=== PATIENT | female | born 1945 | race Two or more races ===

== ENCOUNTER 2020-06-02 23:22 | Inpatient (IN) | payer MEDICARE, MEDICAID ==
[~2020-06-02] VITALS: Ht 167.6 cm; Wt 84.6 kg
[2020-06-03 01:02] LABS: Basophils # (auto) 0 10 ^3/uL (0-0.2); Eosinophils # (auto) 0.2 10 ^3/uL (0-0.8); Lymphocytes # (auto) 0.9 10 ^3/uL (0.4-5.4); Lymphocytes % (auto) 16.7 % (10.0-50.0); Mean Corpuscular Hgb Conc. 33.4 g/dL (32.0-36.0); Monocytes # (auto) 0.4 10 ^3/uL (0-1.3); Neutrophils # (auto) 3.6 10 ^3/uL (1.6-8.6); Platelet Count (auto) 49 10^3/uL (140-450)
[2020-06-03 01:03] LABS: Basophils % (auto) 0.8 % (0.0-2.0); Eosinophils % (auto) 3.3 % (0.0-7.0); Hematocrit 35.2 % (36.0-46.0); Hemoglobin 11.8 g/dL (12.2-16.2); Mean Corpuscular Hemoglobin 32.4 pg (28.0-32.0); Monocytes % (auto) 8.4 % (0.0-12.0); Neutrophils % (auto) 70.8 % (37.0-80.0); Red Blood Cells 3.63 10^6/uL (4.0-5.20); Red Cell Distribution Width 15.9 % (11.8-14.3); White Blood Cell 5.1 10^3/uL (4.4-10.8)
[2020-06-03 01:39] LABS: Albumin 2.6 g/dL (3.4-5.0); Calcium 8.2 mg/dL (8.5-10.1); Potassium 3.7 mmol/L (3.5-5.1)
[2020-06-03 01:42] LABS: BUN/Creatinine Ratio 25.8; Bilirubin, Total 0.8 mg/dL (0.2-1.0); Total Protein 6.5 g/dL (6.4-8.2)
[2020-06-03] MEDS ORDERED: TEMAZEPAM 15 MG CAP PO PRN (08:00)
[2020-06-03] MEDS ORDERED: ONDANSETRON HCL 4 MG/2 ML VIAL IV PRN (08:00)
[2020-06-03] MEDS: PANTOPRAZOLE 40 MG TAB PO SCH (09:48)
[2020-06-03 09:55] LABS: INR 1.23 (0.9-1.15); Partial Thromboplastin Time 28.5 sec (23.0-31.2)
--- NOTE | 2020-06-03 10:00 | NUR ---
Pt arrived to room. Pleasant denies discomfort at this time. Abdomen distended and tight. Coag labs resulted. Call to radiology made then aware resulted.
--- NOTE | 2020-06-03 10:06 | NUR ---
Received report from ER nurse
[2020-06-03 11:25] VITALS: BP 133/52
[2020-06-03] MEDS ORDERED: LACT10SO3 PO (12:34)
[2020-06-03] MEDS ORDERED: RIFA550T PO (12:34)
[2020-06-03] MEDS ORDERED: OMEP20TA PO (12:34)
[2020-06-03] MEDS ORDERED: POM PO (12:34)
[2020-06-03] MEDS ORDERED: PHYTONADIONE(VitK) ORAL Susp 10mg/10ml(1mg/ml) PO ONE (12:45)
--- NOTE | 2020-06-03 14:02 | NUR ---
Tolerates up walking with pt well.
--- NOTE | 2020-06-03 17:16 | NUR ---
IN COMMUNICATION WITH RADIOLOGY PLANNING FOR TAP TOMORROW. PLATELETS REQUIRED TO BE AT [address] RAPP MADE AWARE BY PHONE. SHE ORDERS TYPE AND CROSS MATCH AND TRANSFUSION OF ONE UNIT PLATELETS. RADIOLOGY REQUESTS REPEAT LABS IN AM WITH STAT RESULTS TO BE AVAILABLE FOR RADIOLOGIST IN THE AM. SON AND GRAND DAUGHTER CALL UP DATE GIVEN.
--- NOTE | 2020-06-03 20:11 | NUR ---
REPORT TO NOC RN. [facility] CONTACTED EARLIER AND CONFIRMED TYPE AND CROSS MATCH ORDER IN SYSTEM. BB ORDERS PLATELETS I UNIT. THIS RN MET WITH SYSTEM REQUIRING A BLOOD ORDER SET REQUIREMENT NOT ALLOWING ME TO ORDER PLATELETS. [facility] INFORMED ME THAT PLATELETS WOULD NEED TO BE ORDERED FROM [facility]. VIT K DOSE REQUESTED FROM PHARMACY.
[2020-06-03 22:00] VITALS: BP 130/68
[2020-06-04] VITALS (12 sets, daily range): BP systolic 105–132; BP diastolic 42–71
[2020-06-04 07:16] LABS: Basophils # (auto) 0.1 10 ^3/uL (0-0.2); Basophils % (auto) 1.1 % (0.0-2.0); Eosinophils # (auto) 0.2 10 ^3/uL (0-0.8); Lymphocytes # (auto) 0.8 10 ^3/uL (0.4-5.4); Monocytes # (auto) 0.4 10 ^3/uL (0-1.3); Neutrophils # (auto) 3.5 10 ^3/uL (1.6-8.6); Red Blood Cells 3.54 10^6/uL (4.0-5.20); White Blood Cell 4.9 10^3/uL (4.4-10.8)
[2020-06-04 07:20] LABS: Hematocrit 34.1 % (36.0-46.0); Hemoglobin 11.6 g/dL (12.2-16.2); Lymphocytes % (auto) 15.3 % (10.0-50.0); Mean Corpuscular Hemoglobin 32.7 pg (28.0-32.0); Mean Corpuscular Volume 96.2 fL (80.0-100.0); Monocytes % (auto) 7.7 % (0.0-12.0); Neutrophils % (auto) 71.9 % (37.0-80.0); Nucleated Red Blood Cells % 0.2 %; Red Cell Distribution Width 15.9 % (11.8-14.3)
[2020-06-04 07:29] LABS: Platelet Count (auto) 57 10^3/uL (140-450)
[2020-06-04 07:32] LABS: Albumin 2.5 g/dL (3.4-5.0); Calcium 8.1 mg/dL (8.5-10.1); Magnesium 2.6 mg/dL (1.6-2.6)
[2020-06-04 07:33] LABS: INR 1.21 (0.9-1.15)
[2020-06-04 07:35] LABS: BUN/Creatinine Ratio 29.5
[2020-06-04 07:37] LABS: Bilirubin, Total 1.1 mg/dL (0.2-1.0); Total Protein 6.5 g/dL (6.4-8.2)
[2020-06-04] MEDS: PANTOPRAZOLE 40 MG TAB PO SCH (10:00)
[2020-06-04] MEDS ORDERED: PHYTONADIONE (VIT K)10 MG/ML 1ML VIAL SUBCUT ONE (14:00)
--- NOTE | 2020-06-04 15:25 | NUR ---
PATIENT TO RADIOLOGY, 119/59, 82, 20R 91% ON ROOM AIR 3L 02 PATIENT SAT AT 95%. NAME, , CONSENTS SIGNED, ALLERGIES VERIFIED, POSITIONED FOR PROCEDURE. DR. KATE TO THE BEDSIDE, ALL TEAM MEMBERS PRESENT AND AGREE @ 1563. WILL CONTINUE TO MONITOR.
--- NOTE | 2020-06-04 15:58 | NUR ---
UPDATED FAMILY WHEN THEY CALLED EARLIER. PT NOW IN RADIOLOGY FOR THORACENTESIS.
--- NOTE | 2020-06-04 16:03 | NUR ---
VIT DOSE REQUESTED FROM PHARMACY
--- NOTE | 2020-06-04 16:10 | NUR ---
PROCEDURE COMPLETED, VSS REMAINED STABLE THROUGHOUT PROCEDURE. SEE VITAL SIGNS FOR CHARTING. ULTRA SOUND TECHS REMAINED AT THE BEDSIDE. PLEURAL FLUID TO PATHOLOGY. Addendum: 06/04/20 at 1658 by ROSA HEAD RN ADDENDUM; DRAINED 1,125/1200/200ML. TOTAL FLUID FROM THORACENTISIS 2,525ML
--- NOTE | 2020-06-04 17:15 | NUR ---
PT BACK FROM RADIOLOGY. BANDAGE TO RT BACK. SITE SOFT TO TOUCH AROUND BOARDERS OF THE BANDAGE. DRY. RESTING IN SEMI FOWLERS LEADING ON RIGHT SIDE. INTERMITTENT COUGH. O2 SAT MONITORED. 90-92 % ON 2L NC. ADDED BLANKET FOR COMFORT.
--- NOTE | 2020-06-04 19:28 | NUR ---
Opening Shift Note Received report from JOE Patel. Assumed care of patient, pt sleeping at time of assessment. No S/S of distress/SOB or pain. Instructed on POC and to call for assist PRN. Fall precaution measures in place, will continue to monitor for changes Q1hr and PRN.
--- NOTE | 2020-06-04 21:05 | NUR ---
BEHAVIOR SPECIALIST made this nurse aware pf pt's BP reading at 79/41. pt was immediately reassessed with the BEHAVIOR SPECIALIST and nurse together at bedside. pt's BP was assessed on both arms multiple times, all BPs ranged in the 70s/40s, HR was 118 initially and stayed in the 110s. all other v/s were WNL. pt was pale and lethargic. it was at this time that a code assist was called. refer to code assist charting for further details on the occurrence. Addendum: 06/05/20 at 0151 by KANDY MÁRQUEZ RN RN WRONG patient. disregard note.
[2020-06-05 05:00] VITALS: BP 123/47
[2020-06-05 06:53] LABS: INR 1.31 (0.9-1.15)
[2020-06-05 06:59] LABS: Calcium 7.9 mg/dL (8.5-10.1); Potassium 4.1 mmol/L (3.5-5.1)
--- NOTE | 2020-06-05 07:00 | NUR ---
Opening Shift Report Received report on the patient. Awake lying in bed. Patient shows no signs of distress. Discussed the plan of care with the patient. Bed in lowest position, side rails up x2, and the call light is within reach.
[2020-06-05 07:01] LABS: BUN/Creatinine Ratio 33.6; Bilirubin, Total 1.5 mg/dL (0.2-1.0)
[2020-06-05] MEDS: PANTOPRAZOLE 40 MG TAB PO SCH (08:34)
--- NOTE | 2020-06-05 11:49 | NUR ---
Order for paracentesis was not placed. Placed order for paracentesis and radiology consult.
--- NOTE | 2020-06-05 11:49 | NUR ---
Dr Casas at bedside. New orders received.
[2020-06-05 13:00] VITALS: BP 112/62
[2020-06-05] MEDS ORDERED: PHYTONADIONE(VitK) ORAL Susp 10mg/10ml(1mg/ml) PO ONE (14:00)
--- NOTE | 2020-06-05 14:41 | NUR ---
Radiology called and said that the para had to be pushed until tomorrow because there are too many cases today.
[2020-06-05 16:58] VITALS: BP 117/58
--- NOTE | 2020-06-05 19:20 | NUR ---
RECEIVED PATIENT FROM DAY SHIFT RN. PATIENT RESTING IN BED. NO S/S OF DISTRESS NOTED. DENIED PAIN FOR NOW. ABDOMEN DISTENDED WITH NO PAIN. REINFORCED NPO AFTER MIDNIGHT FOR PROCEDURE TOMORROW. PATIENT VERBALIZED UNDERSTANDING. POC INSTRUCTED AND ENCOURAGED PATIENT TO CALL FOR CYBER SPECIAL AGENT IF NEEDED. BED IN LOWEST POSITION WITH SIDE RAILS UP X 2. CALL DEL REAL WITHIN REACH. ALARM ON. CONTINUE TO MONITOR FOR CHANGES Q1H AND PRN.
[2020-06-05 22:00] VITALS: BP 121/58
--- NOTE | 2020-06-06 00:08 | NUR ---
NPO FROM NOW. FOOD AND WATER REMOVED FROM BEDSIDE. CONTINUE TO MONITOR.
--- NOTE | 2020-06-06 03:14 | NUR ---
PATIENT SLEEPING. NO S/S OF DISTRESS NOTED. CONTINUE TO MONITOR.
[2020-06-06 04:43] VITALS: BP 114/54
[2020-06-06 06:43] LABS: INR 1.29 (0.9-1.15)
[2020-06-06 06:48] LABS: Calcium 7.8 mg/dL (8.5-10.1)
[2020-06-06 06:53] LABS: BUN/Creatinine Ratio 33.3; Bilirubin, Total 0.9 mg/dL (0.2-1.0)
[2020-06-06 07:08] LABS: Basophils # (auto) 0 10 ^3/uL (0-0.2); Eosinophils # (auto) 0.3 10 ^3/uL (0-0.8); Hematocrit 33.3 % (36.0-46.0); Lymphocytes # (auto) 0.8 10 ^3/uL (0.4-5.4); Mean Corpuscular Hgb Conc. 34.1 g/dL (32.0-36.0); Platelet Count (auto) 46 10^3/uL (140-450); White Blood Cell 4.1 10^3/uL (4.4-10.8)
[2020-06-06 07:10] LABS: Basophils % (auto) 1.1 % (0.0-2.0); Eosinophils % (auto) 6.7 % (0.0-7.0); Hemoglobin 11.3 g/dL (12.2-16.2); Lymphocytes % (auto) 19.7 % (10.0-50.0); Mean Corpuscular Hemoglobin 32.8 pg (28.0-32.0); Mean Corpuscular Volume 96.2 fL (80.0-100.0); Monocytes # (auto) 0.3 10 ^3/uL (0-1.3); Monocytes % (auto) 8.4 % (0.0-12.0); Neutrophils # (auto) 2.7 10 ^3/uL (1.6-8.6); Neutrophils % (auto) 64.1 % (37.0-80.0); Nucleated Red Blood Cells % 0.3 %; Red Blood Cells 3.46 10^6/uL (4.0-5.20); Red Cell Distribution Width 15.8 % (11.8-14.3)
[2020-06-06 09:00] VITALS: BP 116/60
[2020-06-06] MEDS: PANTOPRAZOLE 40 MG TAB PO SCH (10:00)
[2020-06-06] MEDS ORDERED: LACTULOSE 20Gm/30ML SOLN PO ONE (10:00)
[2020-06-06 12:04] VITALS: BP 116/60
[2020-06-06 12:49] VITALS: BP 101/62
--- NOTE | 2020-06-06 12:50 | NUR ---
Paracentesis Dr. Alba / Radiology at bed side to do a paracentesis, BP 114/51, HR 70, O2 sat 93% at RA, obtained 950 ml of clear yellow fluid, post BP 116/44, HR 66, O2 sat 93% at RA, placed a band aid to rt abdomen.
[2020-06-06] MEDS ORDERED: ALBUMIN 25% 100 ML IV ONE (13:45)
[2020-06-06 17:00] VITALS: BP 134/68
== END 2020-06-06 18:41 | disposition home or self-care (01) ==
LOC: ER 23:22 → EDBD 23:22 → OVERFLOW 23:24 → WEST WING 06-03 10:06
PROVIDERS: ADMIT Nurse Practitioner; ATTEND Internal Medicine
PROC: 0W9B3ZZ Drainage of Left Pleural Cavity, Percutaneous Approach (ICD-10-PCS; 2020-06-04)
PROC: 30233R1 Transfusion of Nonautologous Platelets into Peripheral Vein, Percutaneous Approach (ICD-10-PCS; 2020-06-04)
PROC: 0W9G3ZZ Drainage of Peritoneal Cavity, Percutaneous Approach (ICD-10-PCS; principal; 2020-06-06)
DX: K74.60 Unspecified cirrhosis of liver (principal); N17.0 Acute kidney failure with tubular necrosis; J90 Pleural effusion, not elsewhere classified; B19.20 Unspecified viral hepatitis C without hepatic coma; R16.1 Splenomegaly, not elsewhere classified; R18.8 Other ascites; J96.00 Acute respiratory failure, unspecified whether with hypoxia or hypercapnia; D64.9 Anemia, unspecified; D68.9 Coagulation defect, unspecified; D69.59 Other secondary thrombocytopenia; J98.11 Atelectasis; N18.9 Chronic kidney disease, unspecified
CPT/HCPCS: 10022; 36415; 71045; 74176; 76604; 76700; 76942; 80048; 80053; 82247; 83690; 83735; 83880; 85025; 85610; 85730; 86850; 86900; 86901; 87070; 87205; 93005; 97110; 97116; 97163; 97530; G0378; J3430; P9047

== ENCOUNTER 2020-06-27 12:00 | Inpatient (IN) | payer MEDICARE, MEDICAID ==
[~2020-06-27] VITALS: Ht 167.6 cm; Wt 54.1 kg
[~2020-06-27 12:00] MED LIST: LACT10SO3 PO; OMEP20TA PO; RIFA550T PO
[2020-06-27 12:45] LABS: Basophils # (auto) 0.1 10 ^3/uL (0-0.2); Eosinophils # (auto) 0.2 10 ^3/uL (0-0.8); Hemoglobin 11.9 g/dL (12.2-16.2); Monocytes # (auto) 0.6 10 ^3/uL (0-1.3)
[2020-06-27 12:47] LABS: Basophils % (auto) 0.9 % (0.0-2.0); Eosinophils % (auto) 3.9 % (0.0-7.0); Hematocrit 33.7 % (36.0-46.0); Lymphocytes % (auto) 16.1 % (10.0-50.0); Mean Corpuscular Hemoglobin 33.7 pg (28.0-32.0); Mean Corpuscular Hgb Conc. 35.4 g/dL (32.0-36.0); Mean Corpuscular Volume 95.2 fL (80.0-100.0); Monocytes % (auto) 9.4 % (0.0-12.0); Neutrophils # (auto) 4.2 10 ^3/uL (1.6-8.6); Neutrophils % (auto) 69.7 % (37.0-80.0); Platelet Count (auto) 46 10^3/uL (140-450); Red Blood Cells 3.54 10^6/uL (4.0-5.20); Red Cell Distribution Width 15.1 % (11.8-14.3)
[2020-06-27 13:04] LABS: Albumin 2.8 g/dL (3.4-5.0); Potassium 3.7 mmol/L (3.5-5.1)
[2020-06-27 13:05] LABS: INR 1.17 (0.9-1.15); Partial Thromboplastin Time 28.3 sec (23.0-31.2)
[2020-06-27 13:10] LABS: BUN/Creatinine Ratio 33.6; Bilirubin, Total 0.6 mg/dL (0.2-1.0); Total Protein 6.7 g/dL (6.4-8.2)
[2020-06-27] MEDS ORDERED: ONDANSETRON HCL 4 MG/2 ML VIAL ONE (13:40)
[2020-06-27] MEDS ORDERED: MORPHINE SULF INJ 2 MG/ML SYRINGE 1ML ONE (13:41)
[2020-06-27] MEDS ORDERED: ONDANSETRON HCL 4 MG/2 ML VIAL IV ONE (13:45)
[2020-06-27] MEDS ORDERED: MORPHINE SULF INJ 2 MG/ML SYRINGE 1ML IV ONE (13:45)
[2020-06-27] MEDS ORDERED: MORPHINE SULF INJ 2 MG/ML SYRINGE 1ML IV PRN ×2 (18:15→19:15)
[2020-06-27] MEDS ORDERED: NITROGLYCERIN 0.4 MG SL TAB SL PRN (18:15)
[2020-06-27] MEDS ORDERED: ACETAMINOPHEN 500 MG TAB PO PRN (19:15)
[2020-06-27] MEDS ORDERED: traMADol HCL 50 MG TAB PO PRN (19:15)
[2020-06-27] MEDS ORDERED: LACTULOSE 20Gm/30ML SOLN PO PRN (19:15)
[2020-06-27] MEDS ORDERED: ONDANSETRON HCL 4 MG/2 ML VIAL IV PRN (19:15)
[2020-06-27] MEDS ORDERED: ALBUTEROL SULF 2.5 MG/0.5ML(0.5%) NEB SOLN NEB PRN (19:15)
[2020-06-27 19:27] VITALS: BP 129/45
--- NOTE | 2020-06-27 19:45 | NUR ---
Spoke to patient's [id number] Tatianna Speaks, patient just left [facility] on 06/20/20 for a thoracentesis in which 2200 mL were removed. 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 Patient has an appointment on Tuesday07/01/[address] Desai. Tatianna will also bring a copy of the Medical POA forms, and Advance directive for the chart. Subha Pérez RN of information.
--- NOTE | 2020-06-27 19:45 | NUR ---
MS admit from ER BASSEMLUCIANA admitted to tele/MS after SBAR not received. Patient oriented to Elisa Amor, RN primary RN, unit, room 279B and unit policies regarding patient care and visiting hours. No S/S of pain, pt SOB and receiving oxygen via NC at 3L. VS recorded as T 97.9, HR 75, RR 22, O2 sat 94%, BP 129/61. Pt abdomen is very distended for which she underwent a paracentesis in ER. Patient weighed by bedscale and encouraged to call if they need something. All questions and concerns addressed, patient verbalized understanding.
[2020-06-27 20:00] VITALS: BP 129/61
--- NOTE | 2020-06-27 21:59 | NUR ---
Call received from radiology regarding Thoracentesis. US states that the patient's thoracentesis cannot be performed until Tuesday unless a manager of manufacturing can come in to do it. They also stated that a new H&H and Coag panel will need to be drawn prior to the procedure. Will relay message to day RN.
[2020-06-27 22:00] VITALS: BP 129/61
[2020-06-27] MEDS: FAMOTIDINE 20 MG TAB PO SCH (22:23)
[2020-06-27] MEDS ORDERED: RIFA550T PO (22:34)
[2020-06-27] MEDS ORDERED: LACT10PA2 PO (22:34)
[2020-06-28] MEDS: ALBUTEROL SULF 2.5 MG/0.5ML(0.5%) NEB SOLN NEB SCH ×4 (00:01→19:00)
[2020-06-28] MEDS: IPRATROPIUM BROM 0.5 MG/2.5ML INH SOL NEB SCH ×4 (00:02→19:00)
[2020-06-28 05:00] VITALS: BP 124/57
[2020-06-28] MEDS: SPIRONOLACTONE 25 MG TAB PO SCH ×2 (06:26→17:49)
[2020-06-28 07:31] LABS: Albumin 2.3 g/dL (3.4-5.0); Calcium 8.3 mg/dL (8.5-10.1); Potassium 4.1 mmol/L (3.5-5.1)
[2020-06-28 07:35] LABS: BUN/Creatinine Ratio 33.1; Bilirubin, Total 0.7 mg/dL (0.2-1.0); Total Protein 5.5 g/dL (6.4-8.2)
[2020-06-28 08:00] VITALS: BP 101/72
--- NOTE | 2020-06-28 08:00 | NUR ---
Opening Shift Note Assumed care of patient, awake, alert and oriented X4. No S/S of distress/SOB or pain. O2 @ 3 LPM via nasal cannula with sats @ 92%. Tele# 50, sinus rhythm @ 72 bpm. IV to left antecubital, 20 gauge, patent and saline locked. Right lower abdominal incision, s/p paracentesis with bandaide in place, clean, dry and intact. Instructed on POC and to call for assist PRN, verbalized understanding. Bed locked, in lowest position, call light within reach, will continue to monitor for changes Q1hr and PRN.
--- NOTE | 2020-06-28 10:45 | NUR ---
ROUNDS Dr Pamella Carter at bedside for rounds, no new orders at this time. Patient updated on plan of care, verbalized understanding.
[2020-06-28] MEDS: FAMOTIDINE 20 MG TAB PO SCH (10:55)
[2020-06-28] MEDS: FUROSEMIDE 40 MG/4 ML VIAL IV SCH (10:55)
[2020-06-28 12:47] VITALS: BP 102/55
[2020-06-28 16:31] VITALS: BP 106/49
--- NOTE | 2020-06-28 19:11 | NUR ---
Care endorsed to JOE Pérez, night nurse.
--- NOTE | 2020-06-28 19:20 | NUR ---
Opening Shift Note Assumed care of patient, awake and alert. No S/S of distress/SOB or pain. Safety measures in place, bed in lowest position. bed rails raised x2, call light within reach. Instructed on POC and to call for assist PRN, will continue to monitor for changes Q1hr and PRN.
[2020-06-28 22:00] VITALS: BP 113/62
[2020-06-29] MEDS: ALBUTEROL SULF 2.5 MG/0.5ML(0.5%) NEB SOLN NEB SCH ×5 (00:30→23:23)
[2020-06-29] MEDS: IPRATROPIUM BROM 0.5 MG/2.5ML INH SOL NEB SCH ×5 (00:31→23:23)
[2020-06-29 05:00] VITALS: BP 108/50
[2020-06-29] MEDS: SPIRONOLACTONE 25 MG TAB PO SCH ×2 (05:42→17:47)
--- NOTE | 2020-06-29 08:00 | NUR ---
Opening Shift Note Assumed care of patient, awake, alert and oriented X4. No S/S of distress/SOB or pain. O2 @ 3 LPM via nasal cannula with sats @ 96%. Tele# 50, sinus rhythm @ 86 bpm. IV to left antecubital, 20 gauge, patent and saline locked. Right lower abdominal incision, s/p paracentesis with bandaide in place, clean, dry and intact. Instructed on POC and to call for assist PRN, verbalized understanding. Bed locked, in lowest position, call light within reach, will continue to monitor for changes Q1hr and PRN.
[2020-06-29 09:15] VITALS: BP 99/47
[2020-06-29] MEDS: FUROSEMIDE 40 MG/4 ML VIAL IV SCH (09:39)
[2020-06-29] MEDS: FAMOTIDINE 20 MG TAB PO SCH (09:40)
--- NOTE | 2020-06-29 10:20 | NUR ---
ROUNDS Dr Pamella Carter at bedside for rounds, new orders received and followed through. Patient updated on plan of care, verbalized understanding.
[2020-06-29] MEDS: LACTULOSE 20Gm/30ML SOLN PO SCH ×3 (11:43→23:51)
[2020-06-29 12:28] VITALS: BP 104/57
[2020-06-29 16:49] VITALS: BP 104/50
--- NOTE | 2020-06-29 18:59 | NUR ---
Care endorsed to JOE Pérez, night nurse.
--- NOTE | 2020-06-29 19:20 | NUR ---
Opening Shift Note Assumed care of patient, awake and alert. No S/S of distress/SOB or pain. Pt receiving supplemental O2 at 3L NC. Pt abdomen distended, round and non tender. Safety measures in place, bed in lowest locked position, bed rails raised x2, call light within reach. All needs addressed at this time. Instructed on POC and to call for assist PRN, will continue to monitor for changes Q1hr and PRN.
[2020-06-29 21:42] VITALS: BP 114/62
--- NOTE | 2020-06-29 23:53 | NUR ---
Pt noted to have had an abrupt bowel movement. Linens soiled. Linens changed, bed bath done.
--- NOTE | 2020-06-29 23:55 | NUR ---
Pt noted to have an acute change in mentation. Pt slow to respond when asked questions, pt unable to state which hospital she is in, what day it is, or her birthday. Pt ammonia levels as of yesterday noted to be 89. MD aware and pt receiving lactulose q6h. Will notify hospitalist about change in status.
--- NOTE | 2020-06-30 00:21 | NUR ---
Spoke with hospitalist about change in mentation. Physician stated to continue monitoring the patient and will recheck ammonia levels in am. Will carry out orders.
[2020-06-30 04:56] VITALS: BP 117/67
[2020-06-30] MEDS: SPIRONOLACTONE 25 MG TAB PO SCH (05:40)
[2020-06-30] MEDS: LACTULOSE 20Gm/30ML SOLN PO SCH ×2 (05:40→12:03)
[2020-06-30] MEDS: ALBUTEROL SULF 2.5 MG/0.5ML(0.5%) NEB SOLN NEB SCH ×2 (06:06→11:36)
[2020-06-30] MEDS: IPRATROPIUM BROM 0.5 MG/2.5ML INH SOL NEB SCH ×2 (06:06→11:36)
[2020-06-30 06:53] LABS: Hemoglobin 11.4 g/dL (12.2-16.2)
[2020-06-30 06:55] LABS: Hematocrit 34.2 % (36.0-46.0)
[2020-06-30 07:08] LABS: INR 1.18 (0.9-1.15); Partial Thromboplastin Time 27.5 sec (23.0-31.2)
[2020-06-30 08:00] VITALS: BP 105/46
[2020-06-30 09:00] VITALS: BP 105/46
--- NOTE | 2020-06-30 09:44 | NUR ---
THORACENTESIS DONE BY DR RANGEL IN ULTRASOUND. VS 108/70-92-9=22-92%. 1850 ML STRAW COLORED FLUID REMOVED. POST CXR DONE.
[2020-06-30] MEDS: FAMOTIDINE 20 MG TAB PO SCH (10:53)
[2020-06-30] MEDS: FUROSEMIDE 40 MG/4 ML VIAL IV SCH (10:53)
[2020-06-30 11:03] VITALS: BP 105/46
[2020-06-30 13:00] VITALS: BP 100/42
[2020-06-30 17:00] VITALS: BP 109/47
--- NOTE | 2020-06-30 18:00 | NUR ---
Discharge instructions given as ordered. Encourage to follow up with PMD as instructed. All questions and concerns addressed. Patient verbalized understanding. Medication reconciliation form completed and copy given to patient. No Home medications held in Pharmacy and none to be returned to patient, and no needed vaccines given. IV removed with catheter intact, pressure dressing applied. Telemetry unit returned to ICU. Patient taken to vehicle via wheelchair with all personal belongings, accompanied by staff and family member. No distress noted at time of departure.
== END 2020-06-30 18:20 | disposition home or self-care (01) ==
LOC: EDBD 12:00 → EDUNIT# 12:00 → ER 12:00 → TELE 12:01 → TELE-WESTW 19:51
PROVIDERS: ADMIT Internal Medicine; ATTEND Family Medicine
PROC: 0W9G3ZZ Drainage of Peritoneal Cavity, Percutaneous Approach (ICD-10-PCS; principal; 2020-06-27)
PROC: 0W993ZZ Drainage of Right Pleural Cavity, Percutaneous Approach (ICD-10-PCS; 2020-06-30)
DX: K74.69 Other cirrhosis of liver (principal); J96.01 Acute respiratory failure with hypoxia; J90 Pleural effusion, not elsewhere classified; B18.2 Chronic viral hepatitis C; D63.8 Anemia in other chronic diseases classified elsewhere; R18.8 Other ascites; D68.9 Coagulation defect, unspecified; D69.6 Thrombocytopenia, unspecified; N18.3 Chronic kidney disease, stage 3 (moderate); K74.60 Unspecified cirrhosis of liver; Z79.899 Other long term (current) drug therapy; E72.4 Disorders of ornithine metabolism; E44.1 Mild protein-calorie malnutrition
CPT/HCPCS: 10022; 36415; 71045; 76604; 76700; 76942; 80053; 82140; 84484; 85014; 85018; 85025; 85610; 85730; 87081; 93005; 94640; G0378; J2405